=== PATIENT | female | born 1965 | race Caucasian/White ===

== ENCOUNTER 2019-02-28 12:01 | Inpatient (IN) ==
[2019-02-28] MEDS ORDERED: PHENERGAN PO PRN (15:44)
[2019-02-28] MEDS ORDERED: TYLENOL PO PRN (15:47)
[2019-02-28] MEDS ORDERED: ZOFRAN IV PRN (15:47)
--- NOTE | 2019-02-28 16:14 | HISTORY AND PHYSICAL ---
HISTORY OF PRESENT ILLNESS: This is a 54-year-old who was sent here I believe from [place]. She states for the last 4 days she has had nausea, has not eaten much. She has tried to drink fluid, but has had several bouts of emesis, and she has noted blood in the emesis as well. She denies black tarry stools. She has felt weak now for several weeks, and was found to have anemia; I think they gave her 1 unit of packed red blood cells, and she was sent over here. PAST MEDICAL HISTORY: 1. Peptic ulcer disease for 7 years. She has not had any surgeries that she knows of. 2. Epilepsy since she has been a young adult. Last seizure about 3 months ago. She think she is on Dilantin. She has been taking medicine, but does not remember if it has been changed. 3. Chronic back pain. 4. Chronic nausea, but it has been worse in the last 4 days. SURGERY: She has had surgery on her feet; I do not know if it was bunions, but her finger I think she hurt it really bad. In fact, it was sliced off stacking firewood and they put some pins in; it is her little finger. SOCIAL HISTORY: She had a [employer] business she lost this year. She lost her granddaughter, who was 8 years old, in a car wreck, and lost her mother I think a little over a year ago. She lives with her common-law ; they live in [place]. FAMILY HISTORY: Heart disease, lung disease, diabetes mellitus. REVIEW OF SYSTEMS: General: She is not sure. She knows she has not eaten in the last 4 days. She thinks she has lost some weight. No fever or chills. HEENT: No change in vision or hearing acuity. Respiratory: No increased work of breathing or dyspnea. Cardiovascular: No chest pain or tachy palpitation. Gastrointestinal and Genitourinary: No gross hematuria, dysuria. GI as noted above--nausea and some dyspepsia, long history of peptic ulcer disease, treated medically. Endocrinologic/hematologic: No significant history. PHYSICAL EXAMINATION: VITAL SIGNS: Temperature 98.7 degrees, pulse 77, respirations 12, blood pressure 94/46. EYES: Pupils are equal and round. LUNGS: Clear in all lung melgoza. CARDIOVASCULAR EXAM: Regular rhythm and rate without murmur or S3. ABDOMEN: Soft, nondistended. She has mild tenderness in the epigastrium. HENT: Conjunctiva pale. Gingiva pale as well. CVP less than 6 cm. NECK: Supple. No thyromegaly. No adenopathy. EXTREMITIES: No pedal edema. SKIN: Warm and dry. No oral or nasal mucosal lesions. HEIGHT AND WEIGHT: Weight 105 pounds. Height 5 feet 10 inches. LAB: Pending at this time. We were told hemoglobin was low, and actually she came from [facility]; that is where she was evaluated. Hematocrit 23, hemoglobin 7.9, creatinine 0.5, chloride 108. OTHER HISTORY: Got from old records. Apparently, she has had tubal ligation. ASSESSMENT AND PLAN: 1. Upper gastrointestinal bleed, sounds like dyspepsia, history of peptic ulcer disease. She does not really describe early satiety, but she has a good deal of nausea. Will give her 2 units of blood. Put her on a proton pump inhibitor. She is on Protonix. Give some intravenous fluids. Follow her hemoglobin and hematocrit. Dr. Radford is consulted for Gastroenterology. I suspect she will need an esophagogastroduodenoscopy. 2. Not eating much in the last 4 days. So, mild protein calorie malnutrition, and we may want to give her some Clinimix. We will put her on Clinimix at 85 mL an hour. 3. History of epilepsy. Need to try and identify her medicines. 4. Chronic lower back pain. 5. Chronic nausea. MEDICATIONS: She is on Xanax 0.5 mg b.i.d. She is on iron 325 mg a day. Takes hydrocodone 7.5/325 one tablet b.i.d., Prilosec she is on 40 mg a day, Protonix 40 mg twice a day, Paxil 40 mg a day, Dilantin she takes 100 mg 3 times a day, and Carafate she is on 1 g and I think she is supposed to be on that 4 times a day. We will continue to give Phenergan for nausea. cc: Tomás Liriano MD
[2019-02-28 16:44] LABS: BASO# 0.04 X1000 (0.0-0.2); BASO% 0.8 % (0.0-0.8); EOS# 0.17 X1000 (0.0-0.7); EOS% 3.6 % (0.0-10.0); HEMATOCRIT 26.2 % (37.0-47.0); HEMOGLOBIN 8.4 g/dL (12.0-16.0); LYMPH% 43.9 % (20.5-51.1); MCH 31.3 PG (27-31); MCHC 32.1 g/dL (33-37); MCV 97.8 FL (81-99); MONO# 0.32 X1000 (0.11-0.59); MONO% 6.7 % (1.7-9.3); MPV 8.9 FL (7.4-10.4); NEUT# 2.15 X1000 (1.4-6.5); PLT 324 X1000 (130-400); RBC 2.68 XMIL (4.2-5.4); RDW 13.6 % (11.5-14.5); WBC 4.78 X1000 (4.8-10.8)
[2019-02-28] MEDS: NS 1,000 ML IV SCH (16:53)
[2019-02-28] MEDS: CARAFATE PO SCH (16:54)
[2019-02-28] MEDS: FERROUS SULFATE PO SCH (16:54)
[2019-02-28] MEDS: DILANTIN PO SCH (16:54)
[2019-02-28 16:59] LABS: AGAP 7; ALB/GLOB RATIO 1.6; ALBUMIN 3.6 g/dL (3.5-5.0); ALKALINE PHOSPHATASE 76 U/L (32-104); BUN 12 mg/dL (8-22); CALCIUM 8.5 mg/dL (8.8-10.2); CHLORIDE 104 mmol/L (98-107); COSMO 269; CREATININE 0.5 mg/dL (0.5-0.9); ESTIMATED GFR > 60; GLUCOSE 89 mg/dL (70-104); GOT 19 U/L (10-30); GPT 29 U/L (10-36); MAGNESIUM 1.7 mg/dL (1.5-2.7); POTASSIUM 3.4 mmol/L (3.5-5.1); SODIUM 135 mmol/L (136-145); TCO2 24 mmol/L (25-35); TOTAL BILIRUBIN 0.23 mg/dL (0.20-1.00); TOTAL PROTEIN 5.9 g/dL (6.3-8.3)
[2019-02-28 17:03] LABS: INR 0.97; PROTIME 12.9 Seconds (11.0-16.0); PTT 33.1 Seconds (22.3-41.8)
[2019-02-28] MEDS: PROTONIX 80 MG in NS 80 ML IV SCH (17:38)
--- NOTE | 2019-02-28 18:10 | Diag Imaging Result Doc PS360 ---
EXAM: CHEST-2 VIEWS INDICATION: r/o pna TECHNIQUE: 2 views COMPARISON: None. FINDINGS: There is minimal biapical chronic pleural thickening. There is a small calcified granuloma at the medial right lung base. The lungs are grossly clear, otherwise. There is no discrete pleural fluid collection or pneumothorax. The cardiomediastinal silhouette and central vasculature are grossly unremarkable. IMPRESSION: No evidence of acute pathology by plain radiograph. Electronically signed by Иван Mathis 02/28/2019 6:08 PM
--- NOTE | 2019-02-28 18:46 | Diag Imaging Result Doc PS360 ---
EXAM: CT ABDOMEN/PELVIS W/WO CONTRAS INDICATION: gib/abd pain TECHNIQUE: This exam was performed using automated exposure control, adjustment of mA or kV according to patient size, and/or use of iterative reconstruction technique. COMPARISON: None. FINDINGS: The liver, gallbladder, spleen, pancreas, adrenal glands, kidneys, and urinary bladder are essentially unremarkable. The reproductive tract is grossly unremarkable as imaged. The appendix is normal. There is fairly mild sigmoid colonic diverticulosis but there is no evidence of diverticulitis. There is abundant stool in the colon suggesting possible mild constipation. No focal bowel wall thickening or bowel obstruction is appreciated. The remainder of the GI tract is grossly unremarkable. No focal inflammatory changes, free abdominal gas, or free fluid is identified. There is no evidence of acute osseous abnormality. IMPRESSION: 1.Mild sigmoid colonic diverticulosis but no evidence of diverticulitis. 2.Possible mild constipation. 3.No evidence of acute pathology by CT, otherwise. Electronically signed by Иван Mathis 02/28/2019 6:44 PM
[2019-02-28] MEDS: NORCO-7.5 PO PRN (20:37)
[2019-02-28] MEDS: PHENERGAN PO PRN (20:37)
[2019-02-28] MEDS: XANAX PO SCH (20:38)
--- NOTE | 2019-02-28 20:54 | CONSULTATION ---
DATE OF CONSULTATION: 02/28/2019 ATTENDING PHYSICIAN: Tomás Liriano MD PRIMARY CARE PHYSICIAN: Dr. Serna in [place], but Dr. Serna recently so she does not have a primary care doctor at the moment. REASON FOR CONSULTATION: Recent hematemesis 3 days ago. HISTORY OF PRESENT ILLNESS: Ms. Ferguson is a 54-year-old female who was admitted to [facility]. She was transferred from [facility]. She was seen in the ER today for recent hematemesis. According to the patient, she has always been anemic. She requires blood transfusions 3 times a year. She had a colonoscopy done 6 months ago at [place]. It was normal, but she does not recall the results of the procedure. She had an EGD done 1-1/2 years ago at [place], which was normal. According to the patient she had been told by her primary care doctor, Dr. Serna that she had been anemic for many years. They were working her up for iron- deficiency anemia, but her blood counts continued to drop and she required 3 blood transfusions in a typical year. There was also thought about aplastic anemia. According to the patient, she was doing well until 3 days ago when she developed acute onset of nausea and multiple episodes of emesis. She did notice some blood in the vomiting. She denies any nosebleed, gums bleeding, or blood in the urine. She denies any blood in the stools. She does have history of mild NSAID use. She took Excedrin about 3 days ago. She was told that she had peptic ulcer disease a few years ago. In the [place] ER she was given 1 unit of blood transfusion. Her hemoglobin was 7.9, her BUN was 15 and she was transferred to [facility] for further workup. PAST MEDICAL HISTORY: 1. Peptic ulcer disease a few years ago. 2. Epilepsy as a young child. Last seizure 3 months ago. 3. Chronic back pain. 4. Chronic nausea, which is worse the last 3-4 days. 5. Recurrent blood transfusions approximately 3 times per year, for many years, for chronic anemia. PAST SURGICAL HISTORY: Surgery on her feet, EGD 1-1/2 years ago, colonoscopy 6 months ago. She has had a tubal ligation. SOCIAL HISTORY: She had a [employer] business she lost this year. She lost her granddaughter who was 8 years old in a car wreck. She lost her mother a little over a year ago. She lives with her common-law . They live in [place]. FAMILY HISTORY: Heart disease, lung disease, diabetes mellitus. REVIEW OF SYSTEMS: Denies any fevers, rigors, chills or chest pain. She does complain of feeling tired and fatigued. She has had nausea, worsening for the last 3-4 days and multiple bouts of vomiting, and had seen some specks of blood in the vomiting as well. She denies any blood in the stools. She does have history of arthritis. She denies any neurological complaints at the moment. She reports some dyspepsia. She had a previous history of peptic ulcer disease. She has history of seizures. ALLERGIES: Penicillin. MEDICATIONS: In the hospital include Tylenol; ferrous sulfate/iron; normal saline 80 mL/h; Protonix b.i.d.; Dilantin 100 mg p.o. t.i.d.; Phenergan 25 mg every 6 hours; Carafate 1 g before meals; Xanax 0.5 mg p.o. b.i.d.; hydrocodone/acetaminophen 7.5 mg every 8 hours as needed; Zofran 4 mg every 4 hours as needed; paroxetine 40 mg once daily; Protonix drip 10 mL/h. DIET: She is on clear liquid diet. PHYSICAL EXAMINATION: Temperature 98.3 degrees, pulse of 82, respiratory rate 16, blood pressure 104/61, saturating 100% on room air. Body weight of 105 pounds, BMI 15.1 kg/m2. Generally the patient is thinly built, lying in bed in no acute distress. HEENT: Pale conjunctivae. No icterus. Pupils equal and reactive to light. Neck is supple. Abdomen is soft, nontender, nondistended. No guarding or rebound.Extremities: No cyanosis or clubbing. Neurologic-yañez she is alert, awake and oriented x3. LABORATORY DATA: No labs were available at the moment from [facility]. Her last labs were done at [facility] which showed hemoglobin of 7.9. IMPRESSION AND PLAN: 1. Recent hematemesis 3 days ago. 2. Nausea, worsening for the last 3-4 days. 3. Vomiting for the last 3-4 days. 4. Chronic anemia for many years. 5. Peptic ulcer disease. 6. Low hemoglobin of 7.9 g/dL on admission at [place] [facility], got 1 unit of blood transfusion. 7. Anxiety. 8. Epilepsy. 9. Decreased p.o. intake. RECOMMENDATIONS: 1. We will continue the patient on Protonix drip for now. We will continue on Carafate. She has been ordered some labs and imaging. Follow on that. She will continue on Dilantin for seizures. The patient was instructed to avoid any NSAIDs. She will continue on iron, ferrous sulfate once daily. We will try to obtain records from [place] from recent EGD and colonoscopy per the primary care team. 2. Most likely we will repeat the EGD on Saturday under anesthesia. The risks, benefits, indications and alternatives to the procedure were discussed with the patient, and the patient had all questions answered. Please call us with any further questions. cc: MD Tomás Cox MD
[2019-02-28 22:26] LABS: HEMATOCRIT 23.7 % (37.0-47.0); HEMOGLOBIN 7.6 g/dL (12.0-16.0)
[2019-03-01] MEDS ORDERED: NS 500 ML ONE (00:05)
[2019-03-01] MEDS: PROTONIX 80 MG in NS 80 ML IV SCH ×3 (03:08→15:26)
[2019-03-01] MEDS: NS 1,000 ML IV SCH ×2 (03:46→17:04)
[2019-03-01] MEDS: NORCO-7.5 PO PRN ×3 (04:39→20:33)
[2019-03-01] MEDS: PHENERGAN PO PRN ×2 (04:40→20:33)
[2019-03-01 04:42] LABS: BASO# 0.03 X1000 (0.0-0.2); BASO% 0.8 % (0.0-0.8); EOS# 0.18 X1000 (0.0-0.7); EOS% 4.7 % (0.0-10.0); HEMATOCRIT 28.3 % (37.0-47.0); HEMOGLOBIN 9.2 g/dL (12.0-16.0); LYMPH# 2.06 X1000 (1.2-3.4); LYMPH% 53.4 % (20.5-51.1); MCH 30.6 PG (27-31); MCHC 32.5 g/dL (33-37); MONO# 0.39 X1000 (0.11-0.59); MONO% 10.1 % (1.7-9.3); MPV 8.7 FL (7.4-10.4); PLT 296 X1000 (130-400); RBC 3.01 XMIL (4.2-5.4); RDW 14.9 % (11.5-14.5); WBC 3.86 X1000 (4.8-10.8)
[2019-03-01 05:04] LABS: AGAP 11; ALB/GLOB RATIO 1.4; ALBUMIN 3.2 g/dL (3.5-5.0); ALKALINE PHOSPHATASE 73 U/L (32-104); BUN 7 mg/dL (8-22); CHLORIDE 108 mmol/L (98-107); COSMO 278; CREATININE 0.5 mg/dL (0.5-0.9); ESTIMATED GFR > 60; GLUCOSE 72 mg/dL (70-104); GOT 16 U/L (10-30); GPT 25 U/L (10-36); MAGNESIUM 1.8 mg/dL (1.5-2.7); POTASSIUM 3.8 mmol/L (3.5-5.1); SODIUM 141 mmol/L (136-145); TCO2 22 mmol/L (25-35); TOTAL BILIRUBIN 0.16 mg/dL (0.20-1.00); TOTAL PROTEIN 5.5 g/dL (6.3-8.3)
[2019-03-01] MEDS: CARAFATE PO SCH ×3 (07:29→15:27)
[2019-03-01] MEDS: PAXIL PO SCH (08:15)
[2019-03-01] MEDS: XANAX PO SCH ×2 (08:15→20:28)
[2019-03-01] MEDS: DILANTIN PO SCH ×3 (08:15→17:06)
[2019-03-01] MEDS: FERROUS SULFATE PO SCH (08:15)
--- NOTE | 2019-03-01 09:01 | EKG Report ---
Test Performed on : 02/28/2019 5:21:34 PM Test Reason : new admit; rythm eval Blood Pressure : / mmHG Vent. Rate : 077 BPM Atrial Rate : 077 BPM P-R Int : 124 ms QRS Dur : 084 ms QT Int : 406 ms P-R-T Axes : 065 064 075 degrees QTc Int : 459 ms Normal sinus rhythm. Normal ECG No previous ECGs available Confirmed by Kendra DELGADO, Parveen Astudillo ([id number]) on 03/01/2019 9:42:19 PM
[2019-03-01 10:15] LABS: HEMATOCRIT 28.3 % (37.0-47.0); HEMOGLOBIN 9.2 g/dL (12.0-16.0)
--- NOTE | 2019-03-01 13:19 | PROGRESS NOTE ---
DATE: 03/01/2019 Ms. Ferguson is hungry. She has no further nausea. She is requesting food G.I. soft gastrointestinal diet. Temp 98.2 degrees, pulse 70, respirations 20, blood pressure 114/68. Pupils are equal. No distended neck veins. Lungs are clear in all lung melgoza. Cardiovascular regular rhythm and rate without murmur or S3. Abdomen is soft. Skin is warm and dry. The patient had recent hematemesis 3 days ago, nausea which has been going on 3 or 4 days, which is resolved. Vomiting for the last 3 or 4 days, chronic anemia for many years. Peptic ulcer disease. Following her hemoglobin and hematocrit, hemoglobin 9.2, hematocrit 28, which is stable. Electrolytes look good. Sodium 141, potassium 3.8, chloride 108, BUN 7, creatinine 0.5. Her abdominal and pelvic CT showed mild sigmoid colon diverticulosis. No evidence of diverticulitis, possible mild constipation. No other acute pathology. So, we will advance her to soft diet and see how we do. cc: Tomás Liriano MD MTDD
[2019-03-01] MEDS: MIRALAX PO SCH (15:26)
[2019-03-01] MEDS: PROTONIX IV SCH (15:27)
[2019-03-01 16:07] LABS: HEMATOCRIT 30.9 % (37.0-47.0)
--- NOTE | 2019-03-01 17:01 | GASTROENTEROLOGY PROGRESS NOTE ---
DATE: 03/01/2019 SUBJECTIVE: Patient resting in bed. She is feeling better. She denies any nausea, vomiting, vomiting blood. She was transfused 1 unit of blood here. She denies any blood in the stools. Her imaging showed evidence of mild constipation. VITALS: Temperature of 98.4 degrees, pulse of 76, respiratory 22, blood pressure 110/70, on room air, body weight of 105 pounds, BMI 19.2 kg/m2.General Appearance: Thinly built lying in bed in no acute distress. HEENT: Pale conjunctivae. No icterus. Pupils equal, reactive to light. Neck: Supple. Abdomen: Soft, nontender, nondistended. No guarding or rebound. Extremities: No cyanosis, clubbing. Neuro: She is alert, awake, oriented. LABS: Hemoglobin and hematocrit is 9.2 and 28.3, white count of 3.86, platelet count of 296,000, her MCV of 94. Sodium 141, potassium 3.8, chloride 100, bicarb 22, anion gap 11, BUN of 7 , creatinine 0.5, glucose of 72, calcium is 8, magnesium 1.8, total bilirubin is 0.16, AST 16, ALT 25, alkaline phosphatase 72, total protein 5.5, albumin of 3.2. Blood cultures were drawn yesterday they are currently pending. IMPRESSION AND PLAN: 1. Recent hematemesis 3 to 4 days ago. We will schedule for EGD in the morning. The risks, benefits, indications, alternatives to the procedure discussed patient and all questions answered. 2. Anemia. Continue to watch for now, transfuse as needed. 3. She will continue PPIs as before. 4. Diverticulosis seen on CT scan. She will continue to avoid excessive corn, nuts, and seeds in diet. She will continue to be on high-fiber diet. 5. Mild constipation. Will start on MiraLAX once daily. 6. She will continue iron supplementation and multivitamin supplementation anemia. 7. History of seizures on Dilantin. 8. Nausea and vomiting is improved. She is on IV antiemetics. 9. Anxiety. She is on medication per primary team. 10. Decreased p.o. intake and low body mass index. Will continue to watch for now. If the esophagogastroduodenoscopy is negative then she may need a colonoscopy. The above plan discussed patient and all questions answered. Please call us with any further questions. cc: MD Dr. Heri Cox
[2019-03-01 22:14] LABS: HEMATOCRIT 28.3 % (37.0-47.0); HEMOGLOBIN 9.2 g/dL (12.0-16.0)
[2019-03-02] MEDS: NS 1,000 ML IV SCH ×2 (02:32→15:43)
[2019-03-02] MEDS: PROTONIX IV SCH ×2 (03:16→17:22)
[2019-03-02] MEDS: PHENERGAN PO PRN ×2 (04:28→12:46)
[2019-03-02] MEDS: NORCO-7.5 PO PRN ×2 (04:28→12:46)
[2019-03-02 04:31] LABS: HEMATOCRIT 28.5 % (37.0-47.0); HEMOGLOBIN 9.2 g/dL (12.0-16.0)
[2019-03-02] MEDS: CARAFATE PO SCH ×3 (06:07→15:47)
[2019-03-02 07:31] LABS: BASO# 0.03 X1000 (0.0-0.2); EOS# 0.12 X1000 (0.0-0.7); EOS% 4.1 % (0.0-10.0); HEMATOCRIT 29.4 % (37.0-47.0); HEMOGLOBIN 9.5 g/dL (12.0-16.0); LYMPH# 1.34 X1000 (1.2-3.4); LYMPH% 45.3 % (20.5-51.1); MCH 30.4 PG (27-31); MCHC 32.3 g/dL (33-37); MCV 93.9 FL (81-99); MONO% 10.1 % (1.7-9.3); NEUT# 1.17 X1000 (1.4-6.5); NEUT% 39.5 % (42.2-75.2); PLT 367 X1000 (130-400); RBC 3.13 XMIL (4.2-5.4); RDW 15.3 % (11.5-14.5); WBC 2.96 X1000 (4.8-10.8)
[2019-03-02 08:06] LABS: AGAP 8; ALB/GLOB RATIO 1.5; ALBUMIN 3.5 g/dL (3.5-5.0); ALKALINE PHOSPHATASE 79 U/L (32-104); BUN 4 mg/dL (8-22); CALCIUM 8.9 mg/dL (8.8-10.2); CHLORIDE 108 mmol/L (98-107); COSMO 278; CREATININE 0.4 mg/dL (0.5-0.9); ESTIMATED GFR > 60; GLUCOSE 91 mg/dL (70-104); GOT 17 U/L (10-30); GPT 22 U/L (10-36); MAGNESIUM 1.8 mg/dL (1.5-2.7); POTASSIUM 4.1 mmol/L (3.5-5.1); SODIUM 141 mmol/L (136-145); TCO2 25 mmol/L (25-35); TOTAL BILIRUBIN < 0.15 mg/dL (0.20-1.00); TOTAL PROTEIN 5.9 g/dL (6.3-8.3)
[2019-03-02] MEDS ORDERED: DIPRIVAN 1% ONE ×2 (09:05→09:52)
--- NOTE | 2019-03-02 09:47 | PROGRESS NOTE ---
DATE: 03/02/2019 SUBJECTIVE: Ms. Ferguson says she is feeling better. She is eating. OBJECTIVE: Temperature 98.2 degrees, pulse 60, respirations 19, and blood pressure 121/68.HEENT: Pupils are equal and round. Lungs: Clear in all lung melgoza. Cardiovascular: Regular rhythm and rate without murmur or S3. Abdomen: Soft. Skin: Warm and dry. Urine output is 1800 mL. ASSESSMENT AND PLAN: 1. Hematemesis 3 to 4 days ago. GI has seen. Dr. Radford has seen. The patient is better. Advance her diet. 2. Anemia, following her hemoglobin and hematocrit. Hematocrit 29, hemoglobin 9.5 and stable. Chemistries look good. Renal function looks good. 3. Continue proton pump inhibitors. 4. Diverticulitis seen on CT scan. She was is to instructed to avoid excessive corn, nuts and seeds. 5. Mild constipation. 6. Continue her iron supplementation. 7. History of seizures. She is on Dilantin. 8. Nausea and vomiting is improved. She is talking about wanting to go home so she is doing okay today. We will see if we can send her home. I think an EGD was planned for today. cc: Tomás Liriano MD
--- NOTE | 2019-03-02 10:07 | ENDOSCOPY OPERATIVE NOTE ---
[facility] ENDOSCOPY OPERATIVE NOTE , PATIENT: Monse Ferguson ADMISSION DATE: MR#: [id number] : 1965 EGD PROCEDURE REPORT PROCEDURE DATE: 03/02/2019 SURGEON: Robert Radford MD STATUS: inpatient SECURITY GUARD: Paul Urias and Beth Hobbs PREOPERATIVE DIAGNOSIS: The patient is a 54 yr old female here for an EGD due to Recent Hematemesis 4-5 days ago, Anemia. PROCEDURE PERFORMED: EGD, diagnostic MEDICATIONS: Per Anesthesia TOPICAL ANESTHETIC: none CONSENT: The patient understands the risks and benefits of the procedure and understands that these r isks include, but are not limited to: sedation, allergic reaction, infection, perforation and/or bleeding. Alternative means of evaluation and treatment include, among others: physical exam, x-rays, and/or surgical intervention. The patient elects to proceed with this endoscopic procedure. HISORY AND PHYSICAL: 03/02/2019 DESCRIPTION OF PROCEDURE: During intra-op preparation period all mechanical and medical equipment was checked for proper function. Hand hygiene and appropriate measures for infection prevention was taken. After the risks, benefits and alternatives of the procedure were thoroughly explained, Informed consent was verified, confirmed and timeout was successfully executed by the treatment team. The patient was anesthetized with topical anesthesia and the PC46-v49 ([id number]) endoscope was introduced through the mouth and advanced to the first portion of the duodenu m. Retroflexion was performed in the stomach and revealed no abnormalities. The gastroscope was then slowly withdraw n and removed. ESOPHAGUS: Esophagitis noted in the mid and distal esophagus; LA Grade III reflux esophagitis; Patchy whitish exudates noted in the distal esophagus; Candidial esophagitis. STOMACH: Food and bile noted in the stomach. Gastritis in the body and antrum with scattered erosion s were noted. DUODENUM: Moderate duodenal inflammation was found in the duodenal bulb and 1st part duodenum. 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 Food was noted in the bulb which was evacuated. SPECIMENS REMOVED: No ADVERSE EVENTS: There were no complications. POSTOPERATIVE DIAGNOSIS: 1. Esophagitis noted in the mid and distal esophagus; LA Grade III refl ux esophagitis; Patchy whitish exudates noted in the distal esophagus; Candidial esophagitis 2. Food and bile noted in the stomach. Gastritis in the body and antrum with scattered erosions wer e noted 3. Duodenal inflammation was found in the duodenal bulb and 1st part duodenum 4. 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 Food was noted in the bulb which was evacuated RECOMMENDATIONS: Start PPI BID for 3 months; Avoid NSAIDs; Start iron C BID for 3 months; Start M QD for 3 months; Start Nystatin 5 ml QID for 2 weeks. Check H pylori stool antigen; Start Full liquid diet and advanc e to pureed diet for now. Will need repeat EGD in 4-6 weeks for post bulbar stricture dilation. REPEAT EXAM: Return in 6 weeks for EGD. Robert Radford MD eSigned: Robert Radford MD 03/02/2019 10:06 AM cc: PATIENT NAME: Monse Ferguson MR#: [id number]
[2019-03-02 11:01] LABS: URINE SOURCE CLEAN CATCH
[2019-03-02 11:05] LABS: BILIRUBIN URINE NEGATIVE (NEGATIVE); BLOOD URINE NEGATIVE (NEGATIVE); COLOR STRAW; GLUCOSE URINE NEGATIVE (NEGATIVE); KETONE URINE NEGATIVE (NEGATIVE); LEUKOCYTES URINE NEGATIVE (NEGATIVE); NITRITE URINE NEGATIVE (NEGATIVE); PH URINE 6.5; PROTEIN URINE NEGATIVE (NEGATIVE); SP GRAVITY URINE 1.006; TURBIDITY URINE CLEAR (CLEAR); UROBILINOGEN URINE NORMAL (NORMAL)
[2019-03-02 11:06] LABS: UR EPITHELIAL CELLS <10 /HPF (<10); URINE BACTERIA NEGATIVE /HPF; URINE RBC <10 /HPF (<10); URINE WBC <10 /HPF (<10)
[2019-03-02] MEDS: MIRALAX PO SCH (11:22)
[2019-03-02] MEDS: PAXIL PO SCH (11:24)
[2019-03-02] MEDS: MYCOSTATIN SUSP PO SCH ×2 (11:24→17:22)
[2019-03-02] MEDS: DILANTIN PO SCH ×2 (11:24→15:47)
[2019-03-02] MEDS: XANAX PO SCH (11:24)
[2019-03-02 15:49] VITALS: BP 114/78
--- NOTE | 2019-03-02 17:17 | DISCHARGE SUMMARY ---
ADMISSION DATE: 02/28/2019 DISCHARGE DATE: HISTORY OF PRESENT ILLNESS: This is a 54-year-old, has no primary care physician at this time. She lives in [place]. She states that for 4 days she has had nausea, has not eaten much. She tried to drink fluid, has had several bouts of emesis and noted blood in her emesis as well. Denied any black tarry stools. [place] weak for several weeks. Found to have anemia. I gave 1 unit of packed red blood cells, and she was sent over here. PAST MEDICAL HISTORY: 1. Peptic ulcer disease for 7 years. She has not had any surgeries that she remembers. 2. Epilepsy since she has been a young adult. Last seizure was about 3 months ago. She is on Dilantin. 3. Chronic back pain. 4. Chronic nausea. 5. Anxiety. SURGICAL HISTORY: She has had surgery on her feet. I think it sounds like it could have been for bunions but really no other surgery. HOSPITAL COURSE: So she was admitted for upper GI bleed and dyspepsia. GI was consulted. She had EGD done and esophagitis noted in the mid and distal esophagus, LA grade 3 reflux esophagitis. Patchy whitish exudates noted in the distal esophagus so Ryann esophagitis as well. She had food and bile in the stomach, gastritis in the body and antrum. Scattered erosions were noted. Duodenal inflammation found. Postbulbar stenosis was noted at the distal ball with circumferential ulceration and contact oozing. EGD scope could not transverse the area. Food was noted in the bulb. So, continue PPIs high dose or start PPIs at a high dose 3 months. Avoid nonsteroidal anti-inflammatories. Give her iron plus vitamin C twice a day for 3 months, multivitamin daily, start nystatin 5 mL four times a day for 2 weeks. Checking stool for antigen and plan to repeat EGD in 4 to 6 weeks. Stay on kind of a liquid diet at this time and plan for in 4 to 6 weeks postbulbar stricture dilatation. We will discharge home. She asked if I could give her some Phenergan and also give her some medicine for anxiety. I told her I could only give anxiety or pain medicine, not both. She needs to find a primary care physician. DISCHARGE MEDICATIONS: Will be as follows: 1. Xanax 0.5 mg b.i.d. I gave her a prescription for 60, no refills. 2. I will not give her any [place]. 3. Icar-C one twice a day. 4. Centrum Silver 1 a day. 5. Mycostatin suspension 5 mL q.6 hours, and she will do that for really several weeks. 6. She will take Protonix 40 mg twice a day for 3 months. 7. Paxil 40 mg a day. 8. Dilantin 100 mg t.i.d. 9. MiraLAX 17 g daily. 10. I gave her some Phenergan 25 mg p.o. and I gave her 40 of those, no refills. 11. Carafate 1 g with every meal and at bedtime. cc: Tomás Liriano MD
[2019-03-02] MEDS ORDERED: ICAR-C PO SCH (21:00)
[2019-03-03] MEDS ORDERED: CENTRUM SILVER PO SCH (09:00)
[2019-03-04 21:15] LABS: GLIADIN AB IGA SEE COMMENTS; GLIADIN AB IGG SEE COMMENTS; TISSUE TRANSGLUTAMINASE IGA SEE COMMENTS; TISSUE TRANSGLUTAMINASE IGG SEE COMMENTS
== END 2019-03-02 17:51 | disposition home or self-care (01) | DRG 378 ==
LOC: DIRADM 12:01 → SUATTDRO 12:01 → 3N 14:14
PROVIDERS: ATTEND Emergency Medicine